=== PATIENT | female | born 1980 | race Caucasian/White ===

== ENCOUNTER 2019-07-09 16:59 | Inpatient (IN) ==
[2019-07-09] MEDS ORDERED: ZOFRAN IV ONE (17:15)
[2019-07-09] MEDS ORDERED: NS 1,000 ML IV ONE ×4 (17:15→21:22)
--- NOTE | 2019-07-09 17:20 | PROVIDER DOCUMENTATION ---
HPI-Abdominal Pain/GI Problem - General Chief Complaint: Abdominal Pain Stated Complaint: ABD PAIN Time Seen by Provider: 07/09/19 17:06 Source: patient Allergies/Adverse Reactions: Patient Allergies Allergy/AdvReac Type Severity Reaction Status Date / Time No Known Allergies Allergy Verified 04/10/19 09:10 Home Medications: Home Medication List Medication Instructions Recorded Confirmed Last Taken Type Cyclobenzaprine [Flexeril] 5 mg PO TID PRN PRN #12 tab 04/10/19 Unknown Rx Ibuprofen 800 mg PO TID PRN PRN #12 tab 04/10/19 Unknown Rx - History of Present Illness-ABD Nature of Presenting Problems: 39 YOF WITH PMH OF ANXIETY, ETOH ABUSE (RECENT OVER THE LAST 6 MONTHS 5TH VODKA PER DAY) DRUG ABUSE (LAST METH USE 4 DAYS AGO) PRESENTS WITH C/O EPIGASTRIC ABDOMINAL PAIN THAT BEGAN ON MONDAY THAT RADIATES TO HER BACK, N/V/D NOW REPORTS GENERALIZED ABDOMINAL PAIN. DENIES FEVER, CHILLS, SOB, CP. SHE ALSO REPORTS SHE HAS BEEN IN BED SINCE MONDAY DUE TO THE SYMPTOMS. Abdominal Pain Onset Location: reports: epigastric (BEGNA MONDAY), generalized abdomen (BEGAN TODAY) Quality of Pain: reports: aching Severity in ED: reports: moderate Onset/Duration: reports: 3 days ago Timing: reports: still present Activities at Onset: reports: none Exposure to sick contacts?: No Modifying Factors: improves with: nothing Associated Symptoms: reports: diarrhea, fatigue, loss of appetite, malaise, nausea, vomiting Last BM: this afternoon Dark Stools Present?: reports: none noticed Rectal Bleeding: reports: none # of Diarrhea Episodes: 4 Rectal Pain: reports: none # of Vomiting Episodes: 4 Emesis Description: reports: clear Bruising or Bleeding Gums?: No Similar Symptoms Previously?: No Recently seen or treated by another doctor?: No Review of Systems - Adult - REVIEW OF SYSTEMS - ADULT Constitutional: reports: no symptoms reported. denies: see HPI, chills, fever, fatique, night sweats, weight gain, weight loss, other Eyes: reports: no symptoms reported. denies: see HPI, discharge, dry eyes, decreased vision, blurred vision, double vision, eye pain, redness, other Ears, Nose, Mouth & Throat: reports: no symptoms reported. denies: see HPI, ear discharge, ear pain, hearing loss, tinnitus, epistaxis, sinus problem, nose pain, loose teeth, mouth/dental pain, mouth swelling, hoarseness, throat pain, throat swelling, other Cardiovascular: reports: no symptoms reported. denies: see HPI, chest pain, edema, heart murmur, irregular heart rate, orthopnea, palpitations, poor circulation, PND, syncope, other Respiratory: reports: no symptoms reported. denies: see HPI, chronic cough, cough, dyspnea on exertion, excessive sputum production, hemoptysis, pleurisy, shortness of breath, wheezing, other Gastrointestinal: reports: see HPI, abdominal pain, diarrhea, nausea, vomiting. denies: no symptoms reported, hematemesis, constipation, difficulty swallowing, frequent heartburn, poor appetite, rectal bleeding, other Genitourinary: reports: no symptoms reported. denies: see HPI, dysuria, discharge, frequency, flank pain, frequent UTI's, hematuria, hesitency, incontinence, urinary retention, urgency, other Musculoskeletal: reports: no symptoms reported. denies: see HPI, bone pain, back pain, frequent leg cramps, joint pain, joint swelling, muscle aches, muscle weakness, neck pain, other Integumentary: reports: no symptoms reported. denies: see HPI, hives, hair loss, itching, mole changes, nail changes, rash, skin sores/ulcer, skin thickening, other Neurological: reports: no symptoms reported. denies: see HPI, ataxia, dizziness/vertigo, headache/migraines, loss of balance, numbness, paresthesia, seizure, slurred speech, syncope, tremors, other Psychiatric: reports: no symptoms reported. denies: see HPI, anxiety, anti- depressant use, alcohol/drug dependence, depression, emotional problems, insomnia, panic attacks, suicidal thoughts, other Endocrine: reports: no symptoms reported. denies: see HPI, change in skin pigment, excessive sweating, goiter, cold intolerance, heat intolerance, increased hunger, increased thirst, polyuria, other Hematologic/Lymphatic: reports: no symptoms reported. denies: see HPI, blood clots, easy bruising, low blood count, lymphedema, prolonged bleeding, swollen lymph nodes, transfusions, other Allergic/Immunologic: reports: no symptoms reported. denies: see HPI, allergic reactions, allergic rhinitis, asthma, eczema, food allergy, frequent infections, hay fever, hives, positive PPD, urticaria, other Past History - Adult - PAST MEDICAL HISTORY-ADULT Review of Records: reports: Nursing Assessment Review, Social history reviewed & non-contributory. - PRIOR SURGERIES/PROCEDURES Surgical/Procedure History: reports: BTL - IMMUNIZATION STATUS Childhood Immunizations: See Nurse Assessment Flu Vaccine: See Nurse Assessment - FAMILY HISTORY Family History: reviewed, not pertinent Physical Exam-General - PHYSICAL EXAM-ADULT Initial Vital Signs Reviewed: Yes - CONSTITUTIONAL General Appearance: appears well, alert, no apparent distress - EYES Eyes: PERRL/EOMI, pink conjunctivae - HEAD, EARS, NOSE, MOUTH & THROAT HENMT: normocephalic/atraumatic, normal ENT inspection. negative: moist mucous membranes (DRY) - NECK Neck: non-tender, full range of motion, supple - RESPIRATORY Respiratory: chest non-tender, lungs clear, normal breath sounds, no pleuratic chest pain, no respiratory distress, no accessory muscle use - CARDIOVASCULAR Cardiovascular: normal peripheral pulses, no edema, no gallop, no JVD, no murmur , tachycardia (106) - GASTROINTESTINAL (ABDOMEN) Abdominal Exam: normal bowel sounds, soft, tenderness (GENERALIZED) - LYMPHATIC Lymphatic: no adenopathy - MUSCULOSKELETAL Back Exam: normal inspection, no CVA tenderness, no vertebral tenderness Extremity: normal range of motion, non-tender, normal gait, normal inspection Peripheral Pulses: radial (R): 2+, radial (L): 2+ - SKIN Integumentary: normal color, normal turgor, warm/dry - NEUROLOGIC Neurologic: grossly normal - PSYCHIATRIC Psych/Mental Status: normal mood/affect, oriented x 3 Progress - PLAN OF CARE/RESULTS Progress/Plan/Lab Results: Vital Signs - 8 hr 07/09/19 17:03 Temperature 98 F Pulse Rate 106 H Respiratory Rate 20 Blood Pressure 129/90 O2 Sat by Pulse Oximetry 96 Orders Category Date Time Status ED: Urine Bedside ORDERED Care 07/09/19 17:09 Active Saline Loc NOW Care 07/09/19 17:[address] ABD/PELVIS W/IV CONT ONLY [CT] Stat Exams 07/09/19 17:14 Ordered AMYLASE [CHEM] Stat Lab 07/09/19 17:09 Ordered CBC WITH DIFF [HEME] Stat Lab 07/09/19 17:09 Ordered COMPREHENSIVE METABOLIC PANEL [CHEM] Stat Lab 07/09/19 17:09 Uncollected LIPASE [CHEM] Stat Lab 07/09/19 17:09 Uncollected UA NIMS W/REFLEX CULT [URINALYSIS] Stat Lab 07/09/19 17:10 Uncollected URINE DRUG SCREEN PL Stat Lab 07/09/19 17:15 Uncollected Ns 1000 ml IV Bolus X1 Med 07/09/19 17:15 Ordered 0.9% Sodium Chloride Inj [Ns] 1,000 ml IV 999 mls/hr Ondansetron [Zofran] Med 07/09/19 17:15 Once 4 mg IV NOW ONE Result Diagrams: 07/09/19 17:35 07/09/19 17:35 - CT/MRI 1 CT Study: Abdomen, Pelvis Impression: See EMR Report ( EXAM: CT ABD/PELVIS W/IV CONT ONLY HISTORY: abd pain, TENDERNESS, N/V TECHNIQUE: CT abdomen and pelvis with intravenous contrast. COMPARISON: None. FINDINGS: There is fatty infiltration of the liver. No calcified gallstones or adjacent inflammation. No splenomegaly. No pancreatic abnormality. Normal adrenal glands. Heterogeneous enhancement of the kidneys. No hydronephrosis. Normal aorta. There are inflammatory changes about the splenic flexure the colon. No bowel obstruction. Trace fluid in each paracolic gutter with a moderate amount of free fluid in the pelvis. The urinary bladder is mildly distended and normal. Normal uterus and ovaries. IMPRESSION: 1.Findings suspicious for pyelonephritis and colitis 2.Fatty infiltration of the liver This exam was performed using automated exposure control, adjustment of mA or kV according to patient size, and/or use of iterative reconstruction technique. Electronically signed by Juve Pope 07/09/2019 7:29 PM 07/09/191928 Interpreting Physician: Juve Pope MD Dictated Date/Time: 07/09/191925 cc: Avani Salinas; Josr Adkins Jr, MD) - CONSULTS/PCP/HOSPITALIST Notification #1 *Consult/PCP/Hospitalist*: DR KOLB Time Discussed: 19:33 Consult Disposition: Admit Departure - Departure Date of Disposition Decision: 07/09/19 Time of Disposition Decision: 19:32 DIAGNOSIS: UTI (urinary tract infection), Pancreatitis, Polysubstance abuse, Alcohol abuse, Pyelonephritis Disposition: ADMITTED INPATIENT 09 Certified Medical Emergency: Emergent Condition: Fair Referrals and Follow-Ups: Josr Adkins Jr, MD [Primary Care Provider] - - Critical Care Note This patient required my direct & personal management of CC.: No Attestation - Physician/ [place] Attestation Patient care was provided by Advanced Practice Provider:: Yes Advanced Practice Provider:: Avani Salinas Advanced Practice Provider documentation review:: The Mid-level provider documentation, treatment plan and medical decision making was reviewed by the physician who agrees with all treatment and medical decision making by the MLP. The physician spent face to face time with patient:: No Advanced Practice Provider documentation review:: Supervising physician onsite and consulted in the evaluation and care of this patient. The physician did not have a face to face encounter with the patient.
[2019-07-09 17:38] LABS: URINE SOURCE CLEAN CATCH
[2019-07-09 17:40] LABS: BILIRUBIN URINE NEGATIVE (NEGATIVE); BLOOD URINE SMALL (NEGATIVE); COLOR YELLOW; GLUCOSE URINE NEGATIVE (NEGATIVE); KETONE URINE 20 mg/dL (NEGATIVE); LEUKOCYTES URINE LARGE (NEGATIVE); NITRITE URINE POSITIVE (NEGATIVE); PROTEIN URINE 200 mg/dL (NEGATIVE); SP GRAVITY URINE 1.033; TURBIDITY URINE HAZY (CLEAR); UROBILINOGEN URINE 2 mg/dL (NORMAL)
[2019-07-09 17:41] LABS: UR EPITHELIAL CELLS <10 /HPF (<10); URINE BACTERIA 1+ /HPF; URINE RBC <10 /HPF (<10); URINE WBC TNTC /HPF (<10)
[2019-07-09 17:45] LABS: BASO# 0.05 X1000 (0.0-0.2); BASO% 0.2 % (0.0-0.8); EOS# 0.23 X1000 (0.0-0.7); EOS% 1.1 % (0.0-10.0); HEMATOCRIT 50.4 % (37.0-47.0); HEMOGLOBIN 16.2 g/dL (12.0-16.0); IMM GRAN# 0.08 X1000 (0.0-0.04); IMM GRAN% 0.4 % (0.0-0.5); LYMPH# 1.77 X1000 (1.2-3.4); LYMPH% 8.2 % (20.5-51.1); MCHC 32.1 g/dL (33-37); MCV 96.4 FL (81-99); MONO# 1.63 X1000 (0.11-0.59); MONO% 7.5 % (1.7-9.3); MPV 11.2 FL (7.4-10.4); NEUT# 17.94 X1000 (1.4-6.5); NEUT% 82.6 % (42.2-75.2); PLT 260 X1000 (130-400); RBC 5.23 XMIL (4.2-5.4)
[2019-07-09] MEDS ORDERED: ROCEPHIN 2 GM in NS 50 ML IV ONE (17:47)
[2019-07-09] MEDS ORDERED: MORPHINE IV ONE (17:49)
[2019-07-09 17:50] LABS: UR AMPHETAMINES QUAL PRESUMPTIVE POSITIVE (NONE DETECT); UR BARBITUATES QUAL NONE DETECTED (NONE DETECT); UR BENZODIAZEPIN QUAL PRESUMPTIVE POSITIVE (NONE DETECT); UR CANNABINOIDS QUAL NONE DETECTED (NONE DETECT); UR COCAINE QUAL NONE DETECTED (NONE DETECT); UR METHADONE QUAL NONE DETECTED (NONE DETECT); UR METHAMPHETAMINE QUAL PRESUMPTIVE POSITIVE (NONE DETECT); UR OPIATES QUAL PRESUMPTIVE POSITIVE (NONE DETECT); UR OXYCODONE QUAL NONE DETECTED (NONE DETECT); UR PCP QUAL NONE DETECTED (NONE DETECT); UR PROPOXYPHENE QUAL NONE DETECTED (NONE DETECT); UR TCA QUAL NONE DETECTED (NONE DETECT)
[2019-07-09 17:58] LABS: EOS 1 % (1-10); LYMPHS 8 % (21-51); MONO 8 % (1-9); SEGS 83 % (42-75)
[2019-07-09 18:05] LABS: AGAP 17; ALBUMIN 4.1 g/dL (3.5-5.0); ALKALINE PHOSPHATASE 147 U/L (32-104); BUN 20 mg/dL (8-22); CALCIUM 9.1 mg/dL (8.8-10.2); CHLORIDE 92 mmol/L (98-107); COSMO 272; CREATININE 0.7 mg/dL (0.5-0.9); ESTIMATED GFR > 60; GLUCOSE 144 mg/dL (70-104); GOT 27 U/L (10-30); GPT 12 U/L (10-36); LIPASE 604 U/L (13-60); POTASSIUM 3.6 mmol/L (3.5-5.1); SODIUM 133 mmol/L (136-145); TCO2 25 mmol/L (25-35)
[2019-07-09] MEDS ORDERED: NS 50 ML ONE (18:20)
[2019-07-09] MEDS ORDERED: ROCEPHIN ONE (18:20)
--- NOTE | 2019-07-09 19:31 | Diag Imaging Result Doc PS360 ---
EXAM: CT ABD/PELVIS W/IV CONT ONLY HISTORY: abd pain, TENDERNESS, N/V TECHNIQUE: CT abdomen and pelvis with intravenous contrast. COMPARISON: None. FINDINGS: There is fatty infiltration of the liver. No calcified gallstones or adjacent inflammation. No splenomegaly. No pancreatic abnormality. Normal adrenal glands. Heterogeneous enhancement of the kidneys. No hydronephrosis. Normal aorta. There are inflammatory changes about the splenic flexure the colon. No bowel obstruction. Trace fluid in each paracolic gutter with a moderate amount of free fluid in the pelvis. The urinary bladder is mildly distended and normal. Normal uterus and ovaries. IMPRESSION: 1.Findings suspicious for pyelonephritis and colitis 2.Fatty infiltration of the liver This exam was performed using automated exposure control, adjustment of mA or kV according to patient size, and/or use of iterative reconstruction technique. Electronically signed by Juve Pope 07/09/2019 7:29 PM
[2019-07-09] MEDS ORDERED: ZOFRAN IV PRN (19:35)
[2019-07-09 19:37] LABS: INR 0.95; PROTIME 13.1 Seconds (11.0-16.0)
[2019-07-09] MEDS ORDERED: ATIVAN IV PRN (21:22)
--- NOTE | 2019-07-09 21:56 | Diag Imaging Result Doc PS360 ---
EXAM: CHEST-1 VIEW HISTORY: SEPSIS PROTOCOL TECHNIQUE: Single view COMPARISON: None. FINDINGS: The lungs are well expanded. The heart is not enlarged. The vessels are not distended. There are no infiltrates. No effusion identified. IMPRESSION: No pneumonia Electronically signed by Juve Pope 07/09/2019 9:54 PM
[2019-07-09] MEDS: ZOSYN 3.375 GM in NS 50 ML IV SCH (22:14)
[2019-07-09] MEDS: MORPHINE IV PRN (22:14)
[2019-07-09] MEDS: NICODERM PATCH TD SCH (22:15)
[2019-07-10] MEDS: ZOSYN 3.375 GM in NS 50 ML IV SCH ×4 (03:27→21:06)
[2019-07-10 06:25] LABS: BASO# 0.04 X1000 (0.0-0.2); BASO% 0.3 % (0.0-0.8); EOS# 0.26 X1000 (0.0-0.7); EOS% 1.7 % (0.0-10.0); HEMATOCRIT 41.6 % (37.0-47.0); IMM GRAN# 0.05 X1000 (0.0-0.04); IMM GRAN% 0.3 % (0.0-0.5); LYMPH# 1.18 X1000 (1.2-3.4); LYMPH% 7.5 % (20.5-51.1); MCH 30.8 PG (27-31); MCHC 31.3 g/dL (33-37); MCV 98.6 FL (81-99); MONO# 1.52 X1000 (0.11-0.59); MONO% 9.7 % (1.7-9.3); MPV 11.1 FL (7.4-10.4); NEUT# 12.66 X1000 (1.4-6.5); NEUT% 80.5 % (42.2-75.2); PLT 187 X1000 (130-400); RBC 4.22 XMIL (4.2-5.4); WBC 15.71 X1000 (4.8-10.8)
[2019-07-10 06:30] LABS: AGAP 11; ALBUMIN 3.4 g/dL (3.5-5.0); ALKALINE PHOSPHATASE 109 U/L (32-104); BUN 13 mg/dL (8-22); CALCIUM 8.3 mg/dL (8.8-10.2); CHLORIDE 101 mmol/L (98-107); COSMO 272; CREATININE 0.6 mg/dL (0.5-0.9); ESTIMATED GFR > 60; GLUCOSE 94 mg/dL (70-104); GOT 18 U/L (10-30); GPT 10 U/L (10-36); MAGNESIUM 1.6 mg/dL (1.5-2.7); POTASSIUM 3.6 mmol/L (3.5-5.1); SODIUM 136 mmol/L (136-145); TCO2 25 mmol/L (25-35); TOTAL PROTEIN 6.3 g/dL (6.3-8.3)
[2019-07-10] MEDS: MORPHINE IV PRN ×3 (06:34→21:06)
[2019-07-10] MEDS: NICODERM PATCH TD SCH (08:40)
[2019-07-10] MEDS ORDERED: M.V.I.-12 10 ML, FOLIC ACID 1 MG, MAGNESIUM SULFATE 1 GM, THIAMINE 100 MG in NS 1,000 ML IV ONE (11:00)
--- NOTE | 2019-07-10 12:00 | HISTORY AND PHYSICAL ---
PRIMARY CARE PHYSICIAN: Dr. Josr Adkins Jr. CHIEF COMPLAINT: Epigastric abdominal pain that radiated to her back, nausea, vomiting, diarrhea, fever, chills for the past 3 to 4 days that has progressively worsened. HISTORY OF PRESENTING ILLNESS: This is a 39-year-old female who presents to [facility] ER with complaints of epigastric abdominal pain that radiates to her back, with nausea, vomiting, and diarrhea that began on Monday and progressively worsened. She states that she drinks about a fifth of vodka a day and has done that over the past 6 months. She last used meth 4 days ago. Her workup showed a white blood cell count of 21.70, sodium was 133, amylase was 440, lipase 604. Urinalysis showed positive nitrites, large leukocytes, 1+ bacteria. Her urine drug screen was presumptive positive for opiates, amphetamines, methamphetamines, benzodiazepine. Serum alcohol level was 12. CT of the abdomen and pelvis showed findings suspicious for pyelonephritis and colitis and a fatty infiltration of the liver. Chest x-ray showed no pneumonia, so she was admitted for further evaluation and treatment. PAST MEDICAL HISTORY: None. PAST SURGICAL HISTORY: Bilateral tubal ligation. FAMILY HISTORY: Reviewed and noncontributory. SOCIAL HISTORY: She currently smokes a half a pack of cigarettes a day and has done so for 20+ years. Drinks a fifth of vodka daily and has done that for the past 6 months. Last used meth 4 days ago. ALLERGIES: She has no known drug allergies. HOME MEDICATIONS: She takes Xanax 0.5 mg p.o. at bedtime and 1 mg p.o. daily. We are going to hold those at this time. IMAGING AND LABORATORY DATA: Laboratory data showed a white blood cell count of 21.70, hemoglobin 16.2, hematocrit 50.4, platelets 260,000. PT and INR of 13.1 and 0.95. Sodium of 133, potassium 3.6, chloride 92, CO2 of 25, BUN of 20, creatinine 0.7, glucose 144. Magnesium was 1.7. Lactate dehydrogenase was 246. Cardiac enzyme was negative. Amylase of 440, lipase 604. Urinalysis with positive nitrites, large leukocytes, 1+ bacteria. Urine drug screen was presumptive positive for opiates, amphetamines, methamphetamines, benzodiazepines. Serum plasma alcohol was 12. CT of the abdomen and pelvis showed findings suspicious for pyelonephritis and colitis and a fatty infiltration of the liver. Chest x-ray showed no pneumonia. REVIEW OF SYSTEMS: She denied any fever, chills, blurred vision, dizziness, chest pain, coughing, shortness of breath. She had epigastric abdominal pain, nausea, vomiting, diarrhea. Denied any burning or hurting with urination. PHYSICAL EXAMINATION: VITAL SIGNS: On arrival, she had a temperature of 98 degrees, pulse 106, respirations 20, blood pressure 129/90, saturating 96% on room air. GENERAL: This is a 39-year-old female, lying in the bed, answers questions appropriately. HEENT: Normocephalic, atraumatic. Normal ENT inspection. Oropharynx and nares are clear. Eyes: Pupils are equal, round, reactive to light and accommodation. Extraocular movements are intact. NECK: Normal inspection. Normal range of motion. LUNGS: Clear to auscultation bilaterally with equal lung expansion and chest wall movement. HEART: Mildly tachycardic at 106, but no murmurs, rubs, or gallops. ABDOMEN: She has generalized tenderness to palpation. Bowel sounds are present x4 quadrants. NEUROLOGICAL: The cranial nerves II through XII appear grossly intact. MUSCULOSKELETAL: She has 5/5 strength x4 extremities. ASSESSMENT: 1. Pyelonephritis. 2. Acute pancreatitis. 3. Colitis. 4. Polysubstance abuse. 5. Ethanol abuse. 6. Leukocytosis secondary to #1, #2, and #3. PLAN: She was admitted to the medical unit and placed on telemetry. She was initially held n.p.o., but now we are going to advance her to a full liquid diet. Give her Ativan 1 mg IV every 4 hours p.r.n. for DT withdrawal. Will give her a banana bag of fluids, morphine 4 mg IV every 2 hours p.r.n., nicotine 21 mg transdermal daily, Zofran 4 mg IV every 4 hours p.r.n., Zosyn 3.375 grams IV every 6 hours. Recheck CBC and BMP in the a.m. Further orders after seen by attending. Dictated by MATT Ortega for Jarred Elam MD cc: MATT Ortega MD Dr. Josr Jed, Jr.
--- NOTE | 2019-07-10 15:15 | HISTORY AND PHYSICAL ---
HISTORY OF PRESENT ILLNESS: Patient presented to the hospital with abdominal pain. Does have a long-standing history of alcohol abuse. Over the past 6 months, has been drinking basically a fifth of vodka a day. She has also used meth for the past 4 days. White count in the ER was initially 21, currently is 15. It appears though she has pancreatitis, as well as pyelonephritis. Going to admit her to the hospital with IV Zosyn, fluid, pain control and will follow. cc: Jarred Elam MD
[2019-07-11] MEDS: ZOSYN 3.375 GM in NS 50 ML IV SCH ×4 (03:18→21:30)
[2019-07-11 05:58] LABS: BASO# 0.03 X1000 (0.0-0.2); BASO% 0.2 % (0.0-0.8); EOS# 0.18 X1000 (0.0-0.7); EOS% 1.5 % (0.0-10.0); HEMATOCRIT 39.4 % (37.0-47.0); HEMOGLOBIN 12.3 g/dL (12.0-16.0); IMM GRAN# 0.02 X1000 (0.0-0.04); IMM GRAN% 0.2 % (0.0-0.5); LYMPH# 1.13 X1000 (1.2-3.4); LYMPH% 9.1 % (20.5-51.1); MCH 30.8 PG (27-31); MCHC 31.2 g/dL (33-37); MCV 98.5 FL (81-99); MONO# 1.07 X1000 (0.11-0.59); MONO% 8.6 % (1.7-9.3); NEUT# 9.98 X1000 (1.4-6.5); NEUT% 80.4 % (42.2-75.2); PLT 183 X1000 (130-400); RDW 13.6 % (11.5-14.5); WBC 12.41 X1000 (4.8-10.8)
[2019-07-11 06:12] LABS: AGAP 11; BUN 7 mg/dL (8-22); CALCIUM 8.4 mg/dL (8.8-10.2); CHLORIDE 102 mmol/L (98-107); COSMO 270; CREATININE 0.4 mg/dL (0.5-0.9); ESTIMATED GFR > 60; GLUCOSE 94 mg/dL (70-104); POTASSIUM 3.5 mmol/L (3.5-5.1); SODIUM 136 mmol/L (136-145); TCO2 23 mmol/L (25-35)
[2019-07-11] MEDS: NICODERM PATCH TD SCH (08:25)
[2019-07-11] MEDS: MORPHINE IV PRN ×3 (08:26→20:08)
[2019-07-11] MEDS ORDERED: DIFLUCAN PO ONE (14:43)
[2019-07-11] MEDS ORDERED: NS 1,000 ML IV ONE (16:42)
[2019-07-11 16:57] LABS: AGAP 10; ALBUMIN 3.2 g/dL (3.5-5.0); ALKALINE PHOSPHATASE 103 U/L (32-104); BUN 8 mg/dL (8-22); CALCIUM 8.7 mg/dL (8.8-10.2); CHLORIDE 99 mmol/L (98-107); COSMO 272; CREATININE 0.5 mg/dL (0.5-0.9); ESTIMATED GFR > 60; GLUCOSE 123 mg/dL (70-104); GOT 16 U/L (10-30); GPT 9 U/L (10-36); POTASSIUM 3.4 mmol/L (3.5-5.1); SODIUM 136 mmol/L (136-145); TCO2 27 mmol/L (25-35); TOTAL PROTEIN 6.3 g/dL (6.3-8.3)
[2019-07-12] MEDS: MORPHINE IV PRN (00:26)
[2019-07-12] MEDS: ZOSYN 3.375 GM in NS 50 ML IV SCH ×3 (03:57→12:48)
--- NOTE | 2019-07-12 05:51 | PROGRESS NOTE ---
DATE: 07/11/2019 SUBJECTIVE: Patient has no major complaints. OBJECTIVE: Vital Signs: Blood pressure is 124/74, heart rate 86, respiratory rate 18, temperature 98.4 degrees, and 97%. Cardiovascular: Regular rate and rhythm. Pulmonary: Bilateral breath sounds, clear to auscultation. Gastrointestinal: Soft, nontender, nondistended. Bowel sounds. DIAGNOSTIC DATA: A white count 12, hemoglobin and hematocrit of 12 and 39, platelets 183,000. Basic was normal. ASSESSMENT AND PLAN: 1. Pyelonephritis. A gram-negative eleazar urinary tract infection, but she seems to be doing okay. 2. Pancreatitis is improving. We will advance her diet and see how she does. 3. Polysubstance abuse, ethanol abuse. She seems to be not going through any major withdrawal. 4. Colitis is doing well. DISPOSITION: Anticipate discharge tomorrow if all her numbers look good. We will also check her lipase and follow closely. cc: Tom Fischer MD
[2019-07-12 06:18] LABS: BASO# 0.03 X1000 (0.0-0.2); BASO% 0.4 % (0.0-0.8); EOS# 0.16 X1000 (0.0-0.7); EOS% 1.9 % (0.0-10.0); HEMOGLOBIN 11.6 g/dL (12.0-16.0); IMM GRAN# 0.03 X1000 (0.0-0.04); IMM GRAN% 0.4 % (0.0-0.5); LYMPH# 1.21 X1000 (1.2-3.4); LYMPH% 14.3 % (20.5-51.1); MCH 31.1 PG (27-31); MCHC 31.4 g/dL (33-37); MCV 99.2 FL (81-99); MONO# 0.95 X1000 (0.11-0.59); MONO% 11.2 % (1.7-9.3); MPV 10.5 FL (7.4-10.4); NEUT# 6.09 X1000 (1.4-6.5); NEUT% 71.8 % (42.2-75.2); PLT 206 X1000 (130-400); RBC 3.73 XMIL (4.2-5.4); RDW 13.2 % (11.5-14.5); WBC 8.47 X1000 (4.8-10.8)
[2019-07-12 07:43] VITALS: BP 117/69
[2019-07-12] MEDS: NICODERM PATCH TD SCH (09:52)
[2019-07-12] MEDS ORDERED: LEVAQUIN PO ONE (11:24)
[2019-07-12] MEDS ORDERED: IMODIUM PO ONE (13:27)
--- NOTE | 2019-07-12 15:26 | DISCHARGE SUMMARY ---
ADMISSION DATE: 07/09/2019 DISCHARGE DATE: 07/12/2019 The patient is doing well. She has not had any further diarrhea. Her abdominal pain is better. OBJECTIVE: Blood pressure 117/69, heart rate 85, respiratory rate of 20, temperature 98.3 degrees. Cardiovascular: Regular rate and rhythm. Pulmonary: Bilateral breath sounds, clear to auscultation. GI: Soft, nontender, nondistended. Bowel sounds are positive. LABORATORY DATA: White count is down to 8, hemoglobin and hematocrit 11 and 37, platelets of 206,000. Lipase was still elevated at 622. Micro showed E. coli which was sensitive to multiple antibiotics except for ampicillin. PROBLEM LIST: 1. E. Coli pyelonephritis. We will discharge her on Levaquin for another 7 days. She has had Zosyn since admission, that would be from the July 09 onwards. 2. Her colitis seems to have resolved. 3. Alcoholic pancreatitis. Clinically, she is improving despite her lipase coming down but overall she is improved and we will plan for discharge today. She was advised at length on avoiding alcohol or alcohol cessation, and then additionally a low-fat diet. This is a [id number] encounter note with MATT Ortega. cc: Tom Fischer MD
--- NOTE | 2019-07-12 21:15 | DISCHARGE SUMMARY ---
ADMISSION DATE: 07/09/2019 DISCHARGE DATE: 07/12/2019 ADMISSION DIAGNOSES: 1. Pyelonephritis. 2. Acute pancreatitis. 3. Colitis. 4. Polysubstance abuse. 5. Ethanol abuse. 6. Leukocytosis secondary to #1, 2 and 3. DISCHARGE DIAGNOSIS: 1. Pyelonephritis with Escherichia coli culture. 2. An acute pancreatitis improved. 3. Polysubstance abuse and ethanol abuse. 4. Colitis improved. SUMMARY OF FINDINGS: This is a 39-year-old female who presented with epigastric abdominal pain that radiated to her back with nausea, vomiting and diarrhea that began on Monday and progressively worsened. States that she drinks about a 5th a pint of vodka a day and has done that for the past 6 months. Last used methamphetamine 4 days prior. Her white blood cell count was 21.70. Sodium was 133, amylase 440, lipase 604. Urinalysis showed positive nitrites, large leukocytes, 1+ bacteria. Drug screen was presumptive positive for opiates, amphetamines, methamphetamines and benzodiazepines. Serum alcohol level was 12. Her CT of the abdomen and pelvis showed findings suspicious for a pyelonephritis and colitis along with a fatty infiltration of the liver. She was admitted, initially held n.p.o. but advanced her diet and is now tolerating a GI soft diet, placed on IV hydration. We gave her Ativan 1 mg IV q.4 hours p.r.n. for DTs. Give her banana bag of fluids, nicotine 21 mg transdermally, Zosyn 3.375 g IV q.6. Her white blood cell count is now normal at 8.47. Again her urine drug screen grew out a E coli that was treated appropriately. She has been afebrile for greater than 24 hours and is now felt that she can be safely discharged home. We did discuss smoking cessation and drug abuse cessation and alcohol cessation with this patient who verbalized understanding. We will give her prescription for [place] 7.5 one p.o. q.6 hours p.r.n. #12 with no refills and Levaquin 500 mg p.o. daily #7 with no refills. FOLLOWUP: She does need to see her primary care physician in the next 1 to 2 weeks and call their office for an appointment. TIME SPENT: 35 minutes. Dictated by MATT Ortega for Tom Fischer MD cc: Josr Fischer MD
[2019-07-13] MEDS ORDERED: LEVAQUIN PO SCH (09:00)
[2019-07-15 09:12] LABS: I-STAT CREATININE 0.9 mg/dL (0.6-1.3)
== END 2019-07-12 15:35 | disposition home or self-care (01) | DRG 689 ==
LOC: P.ED 16:59 → SUATTDRO 21:11 → P.MEDSURG 21:11
PROVIDERS: ADMIT Internal Medicine; ATTEND Internal Medicine